=== PATIENT | male | born 1985 | race Caucasian/White ===

== ENCOUNTER 2017-08-09 09:50 | Emergency (ER) | payer BC ==
[2017-08-09 10:01] VITALS: RESP 18; TEMP 98.9
--- NOTE | 2017-08-09 10:42 | ED ---
Back Pain HPI - General Chief Complaint: Back Pain/Injury Stated Complaint: Back Pain Time Seen by Provider: 08/09/17 10:09 Source: patient, RN notes reviewed Mode of arrival: ambulatory Limitations: no limitations - History of Present Illness Initial Comments: This a 31-year-old male presents emergency Department with chief complaint of mid back pain. Patient states started yesterday. He states he was carrying a half sheet of plywood open the store states it caught the wind causing him to twist. Patient states that he got in his car drove the next store and felt some discomfort.. Patient states he feels like he is having muscle spasms his back. Patient states is worse with movement and worse with deep inspiration. Patient states that he tried restlessly but had no improvement of symptoms. Denies any anterior chest pain. Denies headache, dizziness, focal weakness. Denies any low back pain. - Related Data Previous Rx's Medication Instructions Recorded Cyclobenzaprine [Flexeril] 10 mg PO TID PRN #15 tab 08/09/17 Hydrocodone/Acetaminophen [[place] 1 tab PO Q6HR PRN #20 tab 08/09/17 5-325] Ibuprofen [Motrin] 600 mg PO Q8HR PRN #30 tab 08/09/17 Allergies Allergy/AdvReac Type Severity Reaction Status Date / Time aloe vera AdvReac Dyspnea Verified 08/09/17 10:14 Review of Systems ROS Statement: Those systems with pertinent positive or pertinent negative responses have been documented in the HPI. ROS Other: All systems not noted in ROS Statement are negative. Past Medical History Past Medical History: No Reported History History of Any Multi-Drug Resistant Organisms: None Reported Past Surgical History: Orthopedic Surgery Past Psychological History: No Psychological Hx Reported Smoking Status: Never smoker Past Alcohol Use History: None Reported Past Drug Use History: None Reported General Exam Limitations: no limitations General appearance: alert, in no apparent distress Head exam: Present: atraumatic, normocephalic, normal inspection Neck exam: Present: normal inspection, full ROM. Absent: tenderness, meningismus, lymphadenopathy Respiratory exam: Present: normal lung sounds bilaterally. Absent: respiratory distress, wheezes, rales, rhonchi, stridor, chest wall tenderness Cardiovascular Exam: Present: regular rate, normal rhythm, normal heart sounds. Absent: systolic murmur, diastolic murmur, rubs, gallop, clicks GI/Abdominal exam: Present: soft, normal bowel sounds. Absent: distended, tenderness, guarding, rebound, rigid Extremities exam: Present: normal inspection, full ROM, normal capillary refill. Absent: tenderness, pedal edema, joint swelling, calf tenderness Back exam: Present: full ROM (Mild discomfort), tenderness, paraspinal tenderness (Lower thoracic). Absent: vertebral tenderness Neurological exam: Present: alert, oriented X3, CN II-XII intact, reflexes normal. Absent: motor sensory deficit Skin exam: Present: warm, dry, intact, normal color. Absent: rash Course Vital Signs 08/09/17 09:58 Temperature 98.9 F Pulse Rate 89 Respiratory 18 Rate Blood Pressure 134/79 O2 Sat by Pulse 100 Oximetry Medical Decision Making - Medical Decision Making 31-year-old male presented for mid back pain. Patient has thoracic spasm x-ray does not show any pneumothorax. Patient was given Toradol and Norflex discharged with pain medication return parameters were discussed. Disposition Clinical Impression: Strain of thoracic region, Muscle spasm of back Disposition: HOME SELF-CARE Condition: Stable Instructions: Thoracic Back Strain (ED) Additional Instructions: Please return to the Emergency Department if symptoms worsen or any other concerns. Prescriptions: Cyclobenzaprine [Flexeril] 10 mg PO TID PRN #15 tab PRN Reason: Muscle Spasm Hydrocodone/Acetaminophen [[place] 5-325] 1 tab PO Q6HR PRN #20 tab PRN Reason: Pain Ibuprofen [Motrin] 600 mg PO Q8HR PRN #30 tab PRN Reason: Pain Referrals: Dante Olivera MD [Primary Care Provider] - 1-2 days Time of Disposition: 10:52
--- NOTE | 2017-08-09 10:44 | XR ---
EXAMINATION TYPE: XR chest 2V DATE OF EXAM: 08/09/2017 COMPARISON: NONE HISTORY: Back pain and difficult breathing. TECHNIQUE: Frontal and lateral views of the chest are obtained. FINDINGS: There is no focal air space opacity, pleural effusion, or pneumothorax seen. The cardiac silhouette size is within normal limits. The osseous structures are intact. IMPRESSION: No acute cardiopulmonary process.
[2017-08-09] MEDS ORDERED: ORPHENADRINE 30 MG/ML 2 ML VIAL IM STA (10:53)
[2017-08-09] MEDS ORDERED: KETOROLAC 60 MG/2 ML VIAL IM STA (10:53)
[2017-08-09 11:39] VITALS: BP 122/77; PULSE 65
== END 2017-08-09 11:38 | disposition home or self-care (01) ==
LOC: EC 09:50
DX: S29.012A Strain of muscle and tendon of back wall of thorax, initial encounter (principal); M62.830 Muscle spasm of back; Z91.048 Other nonmedicinal substance allergy status; X50.0XXA Overexertion from strenuous movement or load, initial encounter
CPT/HCPCS: 71020; 99283; 96372 ×2; J2360; J1885

== ENCOUNTER 2017-12-22 06:22 | Emergency (ER) | payer BC ==
[2017-12-22 06:51] VITALS: TEMP 97
[2017-12-22] MEDS ORDERED: KETOROLAC 30 MG/ML 1 ML VIAL IM STA (07:11)
--- NOTE | 2017-12-22 07:22 | ED ---
General Adult HPI - General Chief complaint: Back Pain/Injury Stated complaint: back pain Time Seen by Provider: 12/22/17 07:01 Source: patient Mode of arrival: ambulatory Limitations: no limitations - History of Present Illness Initial comments: 32-year-old male presenting with chief complaint of low back strain. Patient states he was getting into his truck, felt a pull in his had worsening pain since that time. Denies any specific fall or trauma. Patient has had this back pain in the past. He states he was on his way to work but was unable to present to work secondary to pain. Pain is bilateral. Not worse on one side or the other. No dysuria. No sensory changes in the lower extremities. No weakness. No loss of bowel or bladder. - Related Data Previous Rx's Medication Instructions Recorded Cyclobenzaprine [Flexeril] 5 mg PO HS PRN #12 tab 12/22/17 Ibuprofen [Motrin] 600 mg PO Q8HR PRN #24 tab 12/22/17 Allergies Allergy/AdvReac Type Severity Reaction Status Date / Time aloe vera AdvReac Dyspnea Verified 12/22/17 06:27 Review of Systems ROS Statement: Those systems with pertinent positive or pertinent negative responses have been documented in the HPI. ROS Other: All systems not noted in ROS Statement are negative. Past Medical History Past Medical History: No Reported History History of Any Multi-Drug Resistant Organisms: None Reported Past Surgical History: Orthopedic Surgery Past Psychological History: No Psychological Hx Reported Smoking Status: Never smoker Past Alcohol Use History: None Reported Past Drug Use History: None Reported General Exam Limitations: no limitations General appearance: alert, in no apparent distress Head exam: Present: atraumatic, normocephalic Eye exam: Present: normal appearance, PERRL ENT exam: Present: normal exam, normal oropharynx Neck exam: Present: normal inspection. Absent: tenderness, meningismus Respiratory exam: Present: normal lung sounds bilaterally. Absent: respiratory distress Cardiovascular Exam: Present: regular rate, normal rhythm GI/Abdominal exam: Present: soft. Absent: distended, tenderness Extremities exam: Present: normal inspection, normal capillary refill. Absent: pedal edema, joint swelling, calf tenderness Back exam: Present: paraspinal tenderness (Bilateral lower thoracic). Absent: vertebral tenderness Neurological exam: Present: alert, oriented X3, CN II-XII intact, normal gait, reflexes normal, other (Good strength in lower extremities, normal gait, ). Absent: motor sensory deficit Psychiatric exam: Present: normal affect, normal mood Skin exam: Present: warm, dry, intact. Absent: cyanosis, diaphoretic Course Vital Signs 12/22/17 12/22/17 12/22/17 06:24 06:49 07:19 Temperature 97.3 F L 97.0 F L Pulse Rate 68 78 69 Respiratory 18 12 19 Rate Blood Pressure 128/74 130/85 132/74 O2 Sat by Pulse 100 99 98 Oximetry 12/22/17 08:03 Temperature Pulse Rate 72 Respiratory 19 Rate Blood Pressure O2 Sat by Pulse Oximetry Medical Decision Making - Medical Decision Making 32-year-old male presenting with back strain. Pain began while stepping up into the patient's truck. No trauma. Patient has muscle spasm and pain bilateral lower thoracic upper lumbar. No midline tenderness. No alarming features on physical exam or history. Patient is given Toradol in the emergency department and on reevaluation is feeling somewhat better. He does have residual pain however he drove himself to the emergency department. He will be given anti-inflammatory medication and muscle relaxers. He will follow- up with his orthopedic surgeon, he has an appointment within the next week. Urinalysis is clear, no hematuria. - Lab Data Lab Results 12/22/17 Range/Units 08:00 Urine Color Yellow Urine Appearance Clear (Clear) Urine pH 6.0 (5.0-8.0) Ur Specific [place] 1.019 (1.001-1.035) Urine Protein Negative (Negative) Urine Glucose (UA) Negative (Negative) Urine Ketones Negative (Negative) Urine Blood Negative (Negative) Urine Nitrite Negative (Negative) Urine Bilirubin Negative (Negative) Urine Urobilinogen <2.0 (<2.0) mg/dL Ur Leukocyte Esterase Negative (Negative) Disposition Clinical Impression: Strain of lumbar region Disposition: HOME SELF-CARE Condition: Good Instructions: Muscle Spasm (ED), Lower Back Exercises (ED) Prescriptions: Cyclobenzaprine [Flexeril] 5 mg PO HS PRN #12 tab PRN Reason: Muscle Spasm Ibuprofen [Motrin] 600 mg PO Q8HR PRN #24 tab PRN Reason: Pain Referrals: Dante Olivera MD [Primary Care Provider] - 1-2 days Ramon Chaidez MD [STAFF PHYSICIAN] - 1-2 days Time of Disposition: 08:11
[2017-12-22 08:17] LABS: Appearance,Urine Clear (Clear); Bilirubin,Urine Negative (Negative); Blood,Urine Negative (Negative); Color,Urine Yellow; Glucose,Urine (UA) Negative (Negative); Ketones,Urine Negative (Negative); Leukocyte Esterase,Urine Negative (Negative); Nitrite,Urine Negative (Negative); Protein,Urine Negative (Negative); Specific Gravity,Urine 1.019 (1.001-1.035); Urobilinogen,Urine <2.0 mg/dL (<2.0)
[2017-12-22 08:30] VITALS: BP 130/78; PULSE 70; RESP 16
== END 2017-12-22 08:29 | disposition home or self-care (01) ==
LOC: EC 06:22
DX: S39.012A Strain of muscle, fascia and tendon of lower back, initial encounter (principal); Z91.048 Other nonmedicinal substance allergy status; X50.1XXA Overexertion from prolonged static or awkward postures, initial encounter; Y93.89 Activity, other specified
CPT/HCPCS: 81003; 99283; 96372; J1885

== ENCOUNTER → 2019-04-26 | Outpatient (CLI) | payer BC ==
--- NOTE | 2019-04-26 16:16 | US ---
EXAMINATION TYPE: US thyroid st tissue head/neck DATE OF EXAM: 04/26/2019 COMPARISON: NONE CLINICAL HISTORY: E04.1 Nontoxic single thyroid nodule. Difficulty swallowing GLAND SIZE: Right Lobe: 4.5 x 1.5 x 1.7 cm Overall Parenchyma: homogenous Left Lobe: 4.8 x 1.4 x 1.6 cm Overall Parenchyma: homogeneous Isthmus Thickness: 0.2 cm NODULES RIGHT: # of nodules measured on right: 0 LEFT: # of nodules measured on left: 0 ISTHMUS: # of nodules measured in the isthmus: 0 Bilateral neck scanned, no evidence of lymphadenopathy. Thyroid echotexture is homogenous and symmetric. IMPRESSION: Normal thyroid ultrasound
== END | disposition home or self-care (01) ==
LOC: RADUSMAIN 15:27
PROVIDERS: ATTEND Family Medicine
DX: E04.1 Nontoxic single thyroid nodule (principal)
CPT/HCPCS: 76536

== ENCOUNTER → 2021-03-02 | Outpatient (CLI) | payer BC ==
--- NOTE | 2021-03-02 15:04 | CT ---
EXAMINATION TYPE: CT soft tissue neck w con DATE OF EXAM: 03/02/2021 HISTORY: Chronic throat pain. COMPARISON: NONE CT DLP: 532 mGycm. Automated Exposure Control for Dose Reduction was Utilized. TECHNIQUE: CT scan of the neck is performed with IV Contrast, patient injected with 100ml mL of Isov ue 300, axial images are obtained, coronal and sagittal reformatted images are reviewed. FINDINGS: Airway: No gross abnormality seen. Parotid/submandibular glands: No gross abnormality seen. Carotid/Vascular Structures: No significant abnormality seen. Osseous Structures: No significant abnormality seen. Other: A few prominent but subcentimeter lymph nodes throughout the neck bilaterally. Parapharyngeal fat spaces are maintained bilaterally. No definitive abnormal greater than 1 cm neck adenopathy. IMPRESSION: No suspicious mass or adenopathy. Unremarkable study.
== END | disposition home or self-care (01) ==
LOC: RADCTMAIN 13:41
PROVIDERS: ATTEND Otolaryngology
DX: R07.0 Pain in throat (principal)
CPT/HCPCS: 70491; Q9967

== ENCOUNTER → 2021-03-17 | Outpatient (CLI) | payer BC | END | disposition home or self-care (01) | LOC: LABWHC1 14:47 | PROVIDERS: ATTEND Otolaryngology | DX: R53.83 Other fatigue (principal) | CPT/HCPCS: 36415; 86376 ==

== ENCOUNTER → 2021-03-30 | Outpatient (CLI) | payer BC ==
--- NOTE | 2021-03-30 10:48 | FL ---
ESOPHOGRAM. HISTORY: Dysphagia Esophagram was performed per the air contrast technique. The patient swallowed barium and effervesce nt crystals without difficulty or delay. Esophageal peristalsis and motility appear to be within normal limits. There is no evidence for filling defect, mass or diverticulum. There are prominent folds noted dista l one third of the esophagus which may reflect changes of esophagitis. Consider direct visualization. No hiatal hernia seen. Subsequently single contrast cervical esophagram was performed which fails demonstrate evidence for a spiration penetration or mass. IMPRESSION: There are prominent folds noted distal one third of the esophagus which may reflect guzman es of esophagitis. Consider direct visualization.
== END | disposition home or self-care (01) ==
LOC: RADUSWWP 08:42
PROVIDERS: ATTEND Otolaryngology
DX: R13.10 Dysphagia, unspecified (principal)
CPT/HCPCS: 74220

== ENCOUNTER 2021-04-30 09:45 | Day surgery (SDC) | payer BC ==
[2021-04-28 17:11] VITALS: BMI 36.9
[~2021-04-30 09:45] MED LIST: LACTATED RINGERS 1,000 ML IV SCH
[2021-04-30 10:17] VITALS: RESP 16; TEMP 97.4
[2021-04-30] MEDS ORDERED: LIDOCAINE 1% (10MG/ML) FOR IV START INTRADERMA ONE (10:20)
[2021-04-30] MEDS ORDERED: MIDAZOLAM 2 MG/2 ML VIAL ONE (10:50)
[2021-04-30] MEDS ORDERED: fentaNYL (PF) 50 MCG/ML 2 ML AMP ONE (10:50)
[2021-04-30] MEDS ORDERED: PROPOFOL 10 MG/ML 20 ML VIAL IV ONE (10:50)
[2021-04-30] MEDS ORDERED: LIDOCAINE 1% INJ 10MG/ML (20 ML MDV) ONE (10:50)
--- NOTE | 2021-04-30 11:06 | P.PCN ---
Date of Procedure: 04/30/21 Description of Procedure: BRIEF HISTORY: 35-year-old male presenting for outpatient esophagogastroduodenoscopy for evaluation of dysphagia. Patient had been having symptoms of difficulty swallowing and chest tightness and was seen by the ENT service who started him on omeprazole 40 mg. He did feel there was some improvement in symptoms. Computed tomography scan of the neck was normal. Barium swallow showed some prominent folds in the distal esophagus. He also complains of bloating and distention. PROCEDURE PERFORMED: Esophagogastroduodenoscopy with biopsy. PREOPERATIVE DIAGNOSIS: Esophageal dysphagia, dysphagia, abdominal bloating. ESTIMATED BLOOD LOSS: Minimal. IV sedation per anesthesia. PROCEDURE: After informed consent was obtained, the patient was brought into the endoscopy unit. IV sedation was administered by Anesthesia under continuous monitoring. I nitially the Olympus GIF-190 video endoscope was inserted into the mouth. Esophagus intubated without any difficulty. It was gradually advanced into the stomach and duodenum and carefully examined. The bulb and the second part of the duodenum appeared normal, with biopsies taken. The scope at this time was withdrawn to the stomach, adequately insufflated with air, and upon careful examination, mucosa of the antrum, body, cardia and the fundus appeared normal, except for some mild punctate erythema suggestive of mild gastritis biopsies taken of the antrum and body. The scope was then withdrawn into the esophagus. The GE junction was located at 41 cm from the incisors. The esophagus appeared normal, with biopsies of the mid and lower esophagus taken. There were no erosions or ulcerations seen and the patient tolerated the procedure well. IMPRESSION: 1. Mild gastritis. 2. Biopsies of the duodenum, antrum and body, lower esophagus and midesophagus. RECOMMENDATIONS: The findings of this examination were discussed with the patient and the family. Okay to resume diet. Okay to resume medications. Await pathology from biopsies. Continue current medical management.
[2021-04-30 11:21] VITALS: BP 130/93; PULSE 73
== END 2021-04-30 11:42 | disposition home or self-care (01) ==
LOC: ORWHC2ENDO 09:45
PROVIDERS: ATTEND Internal Medicine
DX: R13.10 Dysphagia, unspecified (principal); K29.50 Unspecified chronic gastritis without bleeding; K29.80 Duodenitis without bleeding; Z79.899 Other long term (current) drug therapy
CPT/HCPCS: 88305; 43239; J2250; J2001; J3010; J2704